=== PATIENT | male | born 1960 | race Caucasian/White ===

== ENCOUNTER 2022-03-20 05:05 | Day surgery (SDC) | payer MEDICAID, SELFPAY ==
[2022-03-20] VITALS (11 sets, daily range): BP systolic 107–176; BP diastolic 54–88; PULSE 47–55; RESP 16–24; TEMP 36.6; O2SAT 92–98; BMI 29.0; BMI 29.9
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
[2022-03-20 05:45] LABS: Basophils Absolute Auto 0.03 K/uL (0.00-0.30); Basophils Percent Auto 0.3 % (0.0-3.0); Eosinophils Absolute Auto 0.06 K/uL (0.00-0.50); Eosinophils Percent Auto 0.6 % (0.0-7.0); Hematocrit 47.8 % (37.0-53.0); Hemoglobin* 16.1 gm/dL (13.5-17.5); Immature Granulocytes Abs Auto 0.01 K/uL (0.00-0.30); Lymphocytes Percent Auto 14.4 % (20-44); Mean Corpuscular HGB Conc 34 gm/dL (32-36); Mean Corpuscular Hemoglobin 31 pg (26-34); Mean Corpuscular Volume 91 fL (80-100); Neutrophils Percent Auto 79.6 % (42.0-72.0); Platelet Count* 275 K/uL (140-440); RDW Coefficient of Variation % 12.5 % (11.5-15.5); Red Blood Count 5.26 m/uL (4.30-5.90); White Blood Count* 10.05 K/uL (4.50-11.00)
[2022-03-20] MEDS: 0.9 % SODIUM CHLORIDE 1000 ml 1,000 ML IV (05:46)
[2022-03-20] MEDS: ONDANSETRON 2 MG/ML inj 4 MG IVP ×2 (05:47→19:25)
[2022-03-20] MEDS: MORPHINE 4 MG/ML INJ IVP (05:47)
[2022-03-20 05:50] LABS: Slide Review Reflex No
[2022-03-20 05:58] LABS: Albumin* 4.6 g/dL (3.3-5.0); Chloride* 102 mmol/L (96-114)
[2022-03-20 05:59] LABS: Potassium* 4.2 mmol/L (3.6-5.1); Sodium* 137 mmol/L (135-149)
[2022-03-20 06:00] LABS: INR 2.34 (0.91-1.10)
[2022-03-20 06:01] LABS: Alkaline Phosphatase* 79 U/L (40-150); Amylase* 81 U/L (18-89); Aspartate Amino Transferase* 29 U/L (12-35); Bilirubin Total* 0.4 mg/dL (0.1-1.5); Blood Urea Nitrogen* 15 mg/dL (7-30); Carbon Dioxide* 28 mmol/L (20-32); Est. Creatinine Clearance* 89.89; Estimated Glomerular Filt Rate 87 ml/min; Lipase* 93 U/L (23-300); Total Protein* 7.9 g/dL (6.0-8.3)
[2022-03-20 06:02] LABS: Alanine Aminotransferase* 33 U/L (4-50); Calcium* 8.9 mg/dL (8.4-10.6); Glucose* 132 mg/dL (60-115)
[2022-03-20 06:08] LABS: C Reactive Protein* < 0.5 mg/dL (0.5-1.0)
[2022-03-20 06:13] LABS: Troponin I* < 0.01 ng/mL (0.01-0.04)
--- NOTE | 2022-03-20 06:13 | CRLHL7_ITS ---
For Patients: As a result of the 21st Century Cures Act, medical imaging exams and procedure reports are released immediately into your electronic medical record. You may view this report before your referring provider. If you have questions, please contact your health care provider. Indication: Abdominal pain Technique: Postcontrast CT chest, abdomen and pelvis. 91 cc Isovue 370 intravenous contrast. Please note that all CT scans at this facility use dose modulation, iterative reconstruction, and/or weight-based dosing when appropriate to reduce radiation dose to as low as reasonably achievable. Comparison: None Findings: In the chest, there are multiple old left-sided rib fracture deformities along with an old comminuted scapular fracture deformity. Mild concavity of the T12 and T8 superior endplates also noted, likely chronic. Normal visualized thyroid. No mediastinal, hilar or axillary adenopathy. No aortic dissection or aneurysm. Scarring within the inferior left lung. No pleural effusion, infiltrate, CHF or pneumothorax. No suspicious nodule. In the abdomen, no intrahepatic mass. Gallbladder distended. 5 millimeter stone associated with the cystic duct. Mild adjacent stranding noted in the surrounding fat. Simple cyst in the upper pole of the right kidney measuring 1.2 cm. No hydronephrosis. Left kidney normal. Normal adrenal glands. Chronic changes to the spleen from remote injury. No splenomegaly. No ascites. Pancreas normal. Mild vascular calcifications. No aneurysm. Umbilical hernia containing fat measuring 2.4 cm. In the pelvis, the bladder is normal. Right inguinal hernia is present containing fat measuring 3.5 cm. Prostate is not enlarged. Sigmoid diverticulosis. No diverticulitis. No bowel obstruction or free air. No free fluid. The appendix is absent. Normal ureters. Degenerative facet arthropathy L4-5 and degenerative disc disease L5-S1 with vacuum disc phenomenon. No pelvic or inguinal adenopathy. Impression: Posttraumatic changes to the left ribcage, left scapula and spleen. Likely chronic changes to the superior endplates of T8 and T12. 5 millimeter calcification associated with this cystic duct with mild adjacent inflammation in the surrounding fat and gallbladder distension, concerning for obstructing stone. Correlate with LFTs. MRCP may be useful. 2.4 cm fat containing umbilical hernia and 3.5 cm fat containing right inguinal hernia. Please note that all CT scans at this facility use dose modulation, iterative reconstruction, and/or weight-based dosing when appropriate to reduce radiation dose to as low as reasonably achievable. Dictated by Evangelist Shin MD @ 03/20/2022 10:57:54 AM (Electronically Signed)
[2022-03-20] MEDS: LORazepam 2 MG/ML inj 0.5 MG IVP (06:51)
--- NOTE | 2022-03-20 07:59 | CRLHL7_ITS ---
For Patients: As a result of the Century Cures Act, medical imaging exams and procedure reports are released immediately into your electronic medical record. You may view this report before your referring provider. If you have questions, please contact your health care provider. INDICATION: RUQ PAIN COMPARISON: CT earlier today TECHNIQUE: Limited real time jansen scale imaging and color Doppler analysis was performed of the right upper quadrant. FINDINGS: Single echogenic focus associated with the gallbladder wall measuring 5 millimeters. Common bile duct measures 6 millimeters. Gallbladder wall measures 3.5 millimeters. No pericholecystic fluid. Gallbladder is mildly distended. Visualized liver is normal. IMPRESSION: Focus of adherent sludge or polyp associated with the gallbladder wall measuring 5 millimeters. The gallbladder wall is mildly prominent and the gallbladder is mildly distended. The calcification on CT is not visualized on this examination although this study is limited due to excessive bowel gas. Correlation with liver function tests recommended. Dictated by Evangelist Shin MD @ 03/20/2022 8:36:35 AM (Electronically Signed)
[2022-03-20 08:31] LABS: Appearance Urine Clear (Clear); Bilirubin Urine Negative (Negative); Blood Urine Trace-intact (Negative); Color Urine Yellow (Yellow); Glucose Urine Negative (Negative); Ketones Urine Negative (Negative); Leukocyte Esterase Urine Negative (Negative); Nitrite Urine Negative (Negative); Protein Urine Negative (Negative); Urobilinogen Urine 0.2 (0.2-1.0)
[2022-03-20] MEDS: HYDROmorphone 0.5 mg/0.5 ml inj IVP ×4 (08:35→17:05)
[2022-03-20 08:42] LABS: RBC Urine 0-2 (0-2); WBC Urine 0-2 (0-5)
[2022-03-20] MEDS: PHYTONADIONE (VIT K1) 5 MG in 0.9 % SODIUM CHLORIDE 50 ml 50 ML 100 MG IVPB (09:06)
[2022-03-20 09:37] LABS: SARS PCR* Negative SARS-CoV-2 (Negative)
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
[2022-03-20] MEDS: LACTATED RINGERS 1000 ML 1,000 ML 125 ML IV ×2 (11:36→19:26)
[2022-03-20] MEDS: ACETAMINOPHEN 325 MG TABLET 650 MG PO ×2 (11:40→19:25)
--- NOTE | 2022-03-20 11:43 | P.GSCN_ITS ---
History of Present Illness Consult details Date Seen: 03/20/22 Consult date: 03/20/22 Narrative: Patient presented to the emergency department with persistent right upper quadrant abdominal pain. He states that he has never had pain like this before. He does report some associated nausea but denies any emesis. He overall describes the feeling as being ?uncomfortable?. He denies feeling bloated. No reported constipation or diarrhea, he last had a bowel movement last night. His pain has improved since being admitted, but he still notes some tenderness on that right side. He does have a history of PE and DVT. He is currently on warfarin with INR greater than 2. His abdominal surgical history is positive for appendectomy. Review of Systems Status of ROS: Reports: 10 or more systems reviewed and unremarkable except as noted in History and below [facility] Medical History Anticoagulation goal of INR 2 to 3 Choroid melanoma of left eye Chronic anticoagulation Deep vein thrombosis, lower right extremity Essential hypertension Obesity Pulmonary embolism Recurrent deep venous thrombosis Sinus bradycardia Surgical History History of partial splenectomy Social History Highest level of school completed/degree received: Bachelor's degree Smoking Status: Former smoker Do you use any of these nicotine containing products: None Second hand tobacco smoke exposure: No How often do you have a drink containing alcohol: never How often do you have six or more drinks on one occasion: Never AUDIT-C Alcohol total score: 0 Non-prescribed substance use: denies use Caffeine: Yes (2 cups a day- coffee) Gender Identity: male service: No Meds Home Medications and Allergies Home Medications Medication Instructions Recorded Confirmed Type lisinopril 20 1 tab PO DAILY 03/20/22 03/20/22 History mg-hydrochlorothiazide 12.5 mg tablet warfarin 5 mg tablet 5 mg PO DAILY 03/20/22 03/20/22 History Allergies Allergy/AdvReac Type Severity Reaction Status Date / Time No Known Drug Allergies Allergy Verified 03/20/22 05:11 Exam Narrative: Exam Narrative: General: Alert and oriented, no acute distress Respiratory: Equal breath rise bilaterally, maintained on room air CV: Regular rhythm rate, well perfused Abdomen: Soft, nontender, nondistended. Patient reporting some mild discomfort with deep palpation of right upper quadrant without guarding or rebound. Extremities: No edema appreciated bilaterally Const: Vital Signs, click to edit/add: Vital Signs - 24 hr 03/20/22 05:12 03/20/22 05:53 03/20/22 06:00 Temperature 98 F Pulse Rate [Pulse Oximeter] 53 L 52 L 52 L Respiratory Rate 20 20 Blood Pressure [Ri ght Arm] Blood Pressure [Ri ght Upper Arm] 176/62 H 176/83 H 161/81 H Pulse Oximetry 92 94 94 Oxygen Delivery Me thod Room Air Room Air Room Air 03/20/22 07:00 03/20/22 07:30 03/20/22 09:00 Temperature Pulse Rate [Pulse Oximeter] 55 L 54 L 52 L Respiratory Rate Blood Pressure [Ri ght Arm] Blood Pressure [Ri ght Upper Arm] 146/74 H 142/72 H 134/72 Pulse Oximetry 93 95 95 Oxygen Delivery Oh thod Room Air Room Air Room Air 03/20/22 09:30 03/20/22 09:58 03/20/22 09:58 Temperature 97.9 F Pulse Rate [Pulse Oximeter] 50 L 48 L Respiratory Rate 16 20 Blood Pressure [Ri ght Arm] 159/88 H Blood Pressure [Ri ght Upper Arm] 117/54 L Pulse Oximetry 94 97 94 Oxygen Delivery Me thod Room Air Room Air Room Air 03/20/22 11:21 Temperature 98 F Pulse Rate [Pulse Oximeter] 51 L Respiratory Rate 24 Blood Pressure [Ri ght Arm] 159/82 H Blood Pressure [Ri ght Upper Arm] Pulse Oximetry 98 Oxygen Delivery Me thod Room Air Results Labs Labs: Abnormal lab results 03/20/22 03/20/22 03/20/22 Range/Units 05:35 05:35 05:35 Neut % (Auto) 79.6 H (42.0-72.0) % Lymph % (Auto) 14.4 L (20-44) % Neut # (Auto) 8.00 H (1.7-7.0) K/uL INR 2.34 H (0.91-1.10) Glucose 132 H (60-115) mg/dL Troponin I < 0.01 L (0.01-0.04) ng/mL C-Reactive Protein < 0.5 L (0.5-1.0) mg/dL Urine Blood (Negative) 03/20/22 Range/Units 08:20 Neut % (Auto) (42.0-72.0) % Lymph % (Auto) (20-44) % Neut # (Auto) (1.7-7.0) K/uL INR (0.91-1.10) Glucose (60-115) mg/dL Troponin I (0.01-0.04) ng/mL C-Reactive Protein (0.5-1.0) mg/dL Urine Blood Trace-intact A (Negative) Diabetes panel 03/20/22 Range/Units 05:35 Sodium 137 (135-149) mmol/L Potassium 4.2 (3.6-5.1) mmol/L Chloride 102 (96-114) mmol/L Carbon Dioxide 28 (20-32) mmol/L BUN 15 (7-30) mg/dL Creatinine 1.0 (0.5-1.5) mg/dL Glucose 132 H (60-115) mg/dL Calcium 8.9 (8.4-10.6) mg/dL AST 29 (12-35) U/L ALT 33 (4-50) U/L Alkaline Phosphatase 79 (40-150) U/L Total Protein 7.9 (6.0-8.3) g/dL Albumin 4.6 (3.3-5.0) g/dL Calcium panel 03/20/22 Range/Units 05:35 Calcium 8.9 (8.4-10.6) mg/dL Albumin 4.6 (3.3-5.0) g/dL Pituitary panel 03/20/22 Range/Units 05:35 Sodium 137 (135-149) mmol/L Potassium 4.2 (3.6-5.1) mmol/L Chloride 102 (96-114) mmol/L Carbon Dioxide 28 (20-32) mmol/L BUN 15 (7-30) mg/dL Creatinine 1.0 (0.5-1.5) mg/dL Glucose 132 H (60-115) mg/dL Calcium 8.9 (8.4-10.6) mg/dL Adrenal panel 03/20/22 Range/Units 05:35 Sodium 137 (135-149) mmol/L Potassium 4.2 (3.6-5.1) mmol/L Chloride 102 (96-114) mmol/L Carbon Dioxide 28 (20-32) mmol/L BUN 15 (7-30) mg/dL Creatinine 1.0 (0.5-1.5) mg/dL Glucose 132 H (60-115) mg/dL Calcium 8.9 (8.4-10.6) mg/dL Total Bilirubin 0.4 (0.1-1.5) mg/dL AST 29 (12-35) U/L ALT 33 (4-50) U/L Alkaline Phosphatase 79 (40-150) U/L Total Protein 7.9 (6.0-8.3) g/dL Albumin 4.6 (3.3-5.0) g/dL All other labs normal. Imaging Abdomen CT scan report/results: image reviewed Abdominal ultrasound report/results: report reviewed and image reviewed Assessment and Plan Assessment and plan (1) Acute cholecystitis: Status: Acute Plan Patient is a 61-year-old male with workup consistent for acute cholecystitis. Vital signs stable on admission. Labs are significant for elevated INR 2.3, which is appropriate given his warfarin use. LFTs within normal limits. CT scan demonstrates a stone present in the cystic duct. Abdominal ultrasound was obtained and demonstrated a focus of adherent sludge or polyp on the gallbladder wall, mild gallbladder wall thickening and distension. They do note that they are unable to visualize the calcifications seen on CT scan secondary to bowel gas. Given the above findings, as well as the patient's persistent pain I had a detailed conversation with the patient regarding the diagnosis of acute cholecystitis. We discussed the treatment options including observation with diet modification and laparoscopic cholecystectomy. We discussed the risks of surgery (including but not limited to) the risks of bleeding, infection, injury to other structures in the abdomen including bile duct injury, bile leak and conversion to an open operation. We discussed the possibility that the patient's pain not improve with surgery. We discussed the possibility of permanent post-operative diarrhea that may require medical management. Additionally, the conceivably of complications requiring additional surgery or further hospitalization were also discussed including the risks of MA, respiratory failure, stroke and blood clots. The patient voiced an understanding of our conversation and had the opportunity to ask questions. At this time I recommend continuing with IV antibiotics and reverse the patient's INR with planned surgery tomorrow morning. -clear liquid diet -NPO at midnight -continue IV antibiotics -repeat CBC and LFTs in the morning
[2022-03-20] MEDS: SODIUM CHLORIDE 0.9 % (FLUSH) 10 ML SYRINGE 5 ML IVF ×3 (11:44→21:08)
--- NOTE | 2022-03-20 14:20 | PC.NURSE ---
End of Shift: Patient pleasant and cooperative. Patient arrived to the floor at about 0945. Patient is independent in room. Patient is vitally stable, lungs clear, BS WNL, IV running LR at 125 ml in LAC. Patient has rated pain at most 5/10, tylenol given once and 0.5 mg of Dilaudid given x2. Patient has urinated x2, no passing gas, and only taking sips of water. Patient showered.
--- NOTE | 2022-03-20 17:51 | PC.NURSE ---
shift note: vss stable. pt up indept. pt passing flatus. Pt BS hypoactive with distention to abd. LS clr. Pt rating abd pain 2/10.
[2022-03-20] MEDS: lisinopriL 20 MG TABLET PO (21:07)
[2022-03-21] VITALS (26 sets, daily range): BP systolic 127–187; BP diastolic 66–100; PULSE 52–98; RESP 14–21; TEMP 36.4–37.6; O2SAT 91–100
[2022-03-21] MEDS: LACTATED RINGERS 1000 ML 1,000 ML 125 ML IV ×2 (03:29→15:00)
--- NOTE | 2022-03-21 06:49 | PC.NURSE ---
Alert and oriented x4. Vitals stable. Denies pain overnight. Wondering if surgery can be postponed since pain is no longer there. Explained that that is something he can discuss with the MD during the day. Hypoactive bowel sounds. Ambulating fine independently. No further concerns overnight. Will continue to monitor and assess
[2022-03-21 07:23] LABS: Basophils Absolute Auto 0.04 K/uL (0.00-0.30); Basophils Percent Auto 0.4 % (0.0-3.0); Eosinophils Absolute Auto 0.09 K/uL (0.00-0.50); Eosinophils Percent Auto 0.8 % (0.0-7.0); Hematocrit 46.6 % (37.0-53.0); Hemoglobin* 15.8 gm/dL (13.5-17.5); Immature Granulocytes Abs Auto 0.04 K/uL (0.00-0.30); Lymphocytes Percent Auto 19.2 % (20-44); Mean Corpuscular HGB Conc 34 gm/dL (32-36); Mean Corpuscular Hemoglobin 31 pg (26-34); Mean Corpuscular Volume 91 fL (80-100); Monocytes Percent Auto 7.5 % (0.0-11.0); Neutrophils Percent Auto 71.7 % (42.0-72.0); Platelet Count* 208 K/uL (140-440); RDW Coefficient of Variation % 12.4 % (11.5-15.5); Red Blood Count 5.12 m/uL (4.30-5.90); White Blood Count* 10.88 K/uL (4.50-11.00)
[2022-03-21 07:24] LABS: Slide Review Reflex No
[2022-03-21 07:44] LABS: Prothrombin Time 16.6 Seconds
[2022-03-21 08:09] LABS: Albumin* 3.6 g/dL (3.3-5.0); Chloride* 106 mmol/L (96-114)
[2022-03-21 08:10] LABS: Potassium* 4.1 mmol/L (3.6-5.1); Sodium* 137 mmol/L (135-149)
[2022-03-21 08:12] LABS: Creatinine* 0.9 mg/dL (0.5-1.5); Est. Creatinine Clearance* 99.88; Estimated Glomerular Filt Rate 98 ml/min
[2022-03-21 08:13] LABS: Alanine Aminotransferase* 24 U/L (4-50); Alkaline Phosphatase* 67 U/L (40-150); Aspartate Amino Transferase* 22 U/L (12-35); Bilirubin Direct* 0.1 mg/dL (0.0-0.5); Bilirubin Total* 1.3 mg/dL (0.1-1.5); Blood Urea Nitrogen* 10 mg/dL (7-30); Calcium* 8.4 mg/dL (8.4-10.6); Carbon Dioxide* 29 mmol/L (20-32); Glucose* 90 mg/dL (60-115); Total Protein* 6.4 g/dL (6.0-8.3)
[2022-03-21 08:15] LABS: C Reactive Protein* 4.8 mg/dL (0.5-1.0)
[2022-03-21] MEDS: PIPERACILLIN/TAZOBACTAM 3.375 GM in 0.9 % SODIUM CHLORIDE Mini-bag 100 ML IVPB (09:46)
[2022-03-21] MEDS: LACTATED RINGERS 1000 ML 1,000 ML 100 ML IV (11:15)
--- NOTE | 2022-03-21 11:31 | PM.IMPN1 ---
Progress Note: A&P Assessment and plan (1) Biliary colic: Status: Acute (2) Cholelithiasis: Status: Acute (3) Calculus of cystic duct: Status: Acute (4) Acute cholecystitis: Status: Acute (5) Umbilical hernia: Problem details: CT abd/pelvis (03/20/2022): fat containing Status: Acute (6) Right inguinal hernia: Problem details: CT abd/pelvis (03/20/2022): fat containing Status: Acute (7) Chronic anticoagulation: Status: Acute (8) Anticoagulation goal of INR 2 to 3: Status: Acute (9) Recurrent deep venous thrombosis: Status: Acute (10) Essential hypertension: Status: Acute (11) Sinus bradycardia: Status: Acute Plan 1. Reviewed impression with patient. 2. Answered the patient's questions to his satisfaction. 3. Recommended that he proceed with surgery as planned. 4. Patient's level of anticoagulation is adequately managed preoperatively with an INR of 1.3. 5. Recommend restarting warfarin 12-24 hours after surgery. 6. If patient is able to be adequately ambulatory postoperatively there is no need for bridging with enoxaparin. If patient is not able to be ambulatory postoperatively he will warrant bridging therapy with enoxaparin for about 1 week. The dosing for the bridging therapy would be 1 milligram/kilogram subcutaneously twice daily. 7. Recommend holding antihypertensive medicine until he is able to adequately tolerate oral intake. May resume antihypertensive medicine as early as tomorrow if he is tolerating oral intakes. 8. Patient agreeable with above stated plans and recommendations. 9. Discuss with patient's general surgeon, Dr. Soto. Time Spent With Patient Total time spent: 20 minutes Subjective Time Seen by Provider: 08:00 Date Seen: 03/21/22 Interval history: Hospital day 2. 61-year-old man who presented with sudden onset right upper quadrant abdominal pain and nausea without vomiting. Admitted with severe symptomatic biliary colic and found to have a stone in the cystic duct. Was kept NPO. On IV fluids. Treated with analgesics and antiemetics as needed. Feels much improved today. He states the abdominal pain has seemingly resolved. Did require analgesics and antiemetics however. He wonders if perhaps the stone that was in the cystic duct has since been past or dislodged. Nausea has resolved. Denies chest heaviness, pressure, tightness, or pain. Denies angina or anginal equivalent. Denies syncope or near-syncope. Denies shortness of breath, cough. Denies palpitations. Denies dyspepsia, dysphagia, odynophagia. Exam Narrative: Exam Narrative: Alert, articulate, cooperative. Oriented to self, place, time, situation. Mood and affect are congruent. No acute distress. No CVA tenderness. Lungs clear to auscultation. Heart tones with regular rhythm. Abdomen with active bowel sounds, soft. Extremities without edema. Skin is warm, dry, intact. No focal motor neurologic deficits. Const: Vital Signs, click to edit/add: Vital Signs - 24 hr 03/20/22 15:00 03/20/22 23:00 03/20/22 23:00 Temperature 98 F 98 F Pulse Rate [Pulse Oximeter] 47 L 53 L 53 L Respiratory Rate 20 20 20 Blood Pressure [Ri ght Arm] 145/72 H 107/66 Pulse Oximetry 96 96 Oxygen Delivery Me thod Room Air Room Air 03/21/22 07:00 Temperature 98.5 F Pulse Rate [Pulse Oximeter] 52 L Respiratory Rate 18 Blood Pressure [Ri ght Arm] 149/66 H Pulse Oximetry 93 Oxygen Delivery Me thod Room Air Labs Labs: Laboratory Results - last 24 hr 03/21/22 03/21/22 03/21/22 06:58 06:58 07:48 WBC 10.88 RBC 5.12 Hgb 15.8 Hct 46.6 MCV 91 MCH 31 MCHC 34 RDW Coeff of [place] 12.4 Plt Count 208 Neut % (Auto) 71.7 Lymph % (Auto) 19.2 L [place] % (Auto) 7.5 Eos % (Auto) 0.8 Baso % (Auto) 0.4 Neut # (Auto) 7.80 H Lymph # (Auto) 2.10 [place] # (Auto) 0.80 Eos # (Auto) 0.09 Baso # (Auto) 0.04 Abs Immat Gran (auto) 0.04 INR 1.30 H Sodium 137 Potassium 4.1 Chloride 106 Carbon Dioxide 29 BUN 10 Creatinine 0.9 Estimated Creat Clear 99.88 Estimated GFR 98 Glucose 90 Calcium 8.4 Total Bilirubin 1.3 Direct Bilirubin 0.1 AST 22 ALT 24 Alkaline Phosphatase 67 C-Reactive Protein 4.8 H Total Protein 6.4 Albumin 3.6
--- NOTE | 2022-03-21 12:52 | P.GSOP_ITS ---
Operative Note Date of procedure: 03/21/22 Type of Procedure: Laparoscopic cholecystectomy Procedure Description: After discussing the risks and benefits of the procedure, the patient signed informed consent.? The operative site was marked and the patient was brought to the operating room and placed on the operating table in supine position.? Care was taken to pad the patient's pressure points.?? The patient was then intubated by anesthesia.?? The operative site was then prepped and draped in the usual sterile fashion.? A time-out was then performed. Entrance to the abdomen was gained via a 5 mm Visiport in the left upper quadrant. The abdomen was insufflated and briefly surveyed for signs of injury. There was none. 11 mm umbilical port was placed as well as 2 working ports along the right costal margin. Patient was then placed in reverse Trendelenburg position with the right side up. The gallbladder fundus was grasped and retracted cephalad. The gallbladder was distended and hemorrhagic. The laparoscopic needle was used to decompress the gallbladder, allowing the infundibulum to be grasped. A combination of hook cautery and blunt dissection was used to carefully dissect out the cystic duct and artery until they could clearly be seen entering the gallbladder without any intervening structures. The tissue was very edematous and [place], making this portion of the dissection tedious. The gallbladder was able to be dissected off the cystic plate to achieve the critical view. Once this was achieved the cystic duct and artery were each clipped with 2 clips proximally and 1 clip distally and transected with the scissors. The gallbladder was then taken off of the liver bed. A small vein was visualized by the cystic duct, this was bleeding and a 5 mm clip applied with adequate hemostasis. Due to the inflammatory nature of the tissue the gallbladder fossa had some oozing of the inflammatory tissue. A Surgicel was applied and hemostasis assured. The gallbladder was completely removed from the liver bed and removed from the abdomen using an Endo-Catch bag. A small amount of bile which had spilled was suctioned from the abdomen. the ports were then removed under direct vision. The umbilical port fascia was closed with 0 Vicryl. The skin was closed with absorbable subcuticular suture. Instrument sponge and needle counts were correct at the end of the case. The patient was then woken and transferred to the PACU in stable condition. Findings: Hemorrhagic and distended gallbladder, consistent with acute cholecystitis. Anesthesia: GETA Surgeon: Urmila Soto MD Estimated blood loss (mL): 15 Condition: stable Disposition: PACU
--- NOTE | 2022-03-21 13:06 | W.ANESCHARGE ---
Anesthesia Charges Start Date/Time Anesthesia Start Date: 03/21/22 Anesthesia Start Time: 11:13 Stop Date/Time Anesthesia Stop Date: 03/21/22 Anesthesia Stop Time: 13:02 Summary Emergency: No
[2022-03-21] MEDS: fentaNYL 100 MCG/2 ML inj 50 MCG IVP (13:21)
--- NOTE | 2022-03-21 15:46 | PC.NURSE ---
Pt NPO for surgical procedure this am. Eval by Dr. Szymanski and Dr. Soto. Jun from anesthesia in room to discuss plan with pt who is mildly apprehensive about having the surgery. My pain is totally gone. Information provided and reassurance given. Pre-op check list, SBAR and permits completed per protocol. Pt taken to OR in his hospital bed @ 1110 am. Pt returned to room 247 s/p laparoscopic cholecystectomy with Dr. Soto in his hospital bed @ 1400. Please see initial assessment from PACU and post op routine VS. Pt has not voided since rtn to floor. Pt remains anxious, drifts in and out of sleep. IV maintenance fluids @ 125cc/hr. Pt denies abdominal pain, I just feel weird. Tolerating ice chips, denies nausea, not hungry yet. Reassurance provided. Report to Ailyn EDWARD for evening shift.
[2022-03-21] MEDS: ONDANSETRON 2 MG/ML inj 4 MG IVP (16:55)
[2022-03-21] MEDS: OXYCODONE 5 MG TABLET PO (19:13)
[2022-03-21] MEDS: lisinopriL 20 MG TABLET PO (20:32)
--- NOTE | 2022-03-21 22:11 | PC.NURSE ---
Shift [id number]- Patient rates pain up to 4-5/10 with movement, but otherwise states he is not really having much pain, particularly at rest. He requests pain medication tonight, which is given with relief. He is eating and drinking without issue. He is now voiding without issue. He requires 1L O2 to maintain saturations >90%, with saturations at low-mid 90s%. IS encouraged. While sitting in the chair, becomes hot and nauseous- though was sitting in sun. These symptoms subside after getting back to bed, shades pulled and being given zofran. Lap sites intact.
[2022-03-22 00:26] VITALS: PULSE 56; RESP 20; O2SAT 91
[2022-03-22] MEDS: OXYCODONE 5 MG TABLET PO ×3 (01:58→13:26)
[2022-03-22 03:18] VITALS: BP 122/62; PULSE 62; RESP 20; TEMP 36.8; O2SAT 92
[2022-03-22] MEDS: ACETAMINOPHEN 325 MG TABLET 650 MG PO (05:03)
--- NOTE | 2022-03-22 05:10 | PC.NURSE ---
Shift Note 23-07: Pt pleasant and cooperative with POC. VSS, afebrile, pain rated 5/10, Pt satisfied with pain medication regimen. pt requiring 1L NC supplemental O2 to keep sats >90%. Pt ed provided on the importance of deep breathing, IS use and ambulation. See eMAR for medication administration.
[2022-03-22 07:00] VITALS: BP 131/58; PULSE 55; RESP 18; TEMP 36.8; O2SAT 93
[2022-03-22 08:30] VITALS: PULSE 55; RESP 18
[2022-03-22 11:00] VITALS: BP 135/70; PULSE 58; RESP 18; TEMP 36.8; O2SAT 96
--- NOTE | 2022-03-22 14:37 | PC.NURSE ---
Discharge Summary: Patient pleasant and cooperative. Afebrile. O2 sats 93-96% on room air. Lap sites to abdomen C/D/I. C/o pain up to 410 and PRN Oxycodone given x2. Tolerating regular diet with no nausea. Up independently in room. C/o calf tightness in left leg, updated MD. Patient discharged home at 1355 with all personal belongings. Discharge instructions including diagnosis, medications and follow up plan discussed with patient and voiced understanding.
--- NOTE | 2022-04-02 13:00 | PM.DS1 ---
DS: Providers Provider Date Seen: 03/22/22 Primary care physician: Osiel Calix MD Attending Physician on discharge: Adi Szymanski MD DS: Summary Hospital Course Hospital Course: Patient was admitted to the hospital with evidence of acute cholecystitis. He does take warfarin chronically and had an appropriate INR on admission of 2.3. He was admitted to the hospital started on IV antibiotics and reversed with vitamin K. On hospital day 2 his INR was 1.3 and he was taken to the operating room for laparoscopic cholecystectomy. Patient tolerated procedure well without immediate complication. On the day of discharge he was tolerating a regular diet, ambulating independently, voiding without difficulty and pain was well controlled on oral medications. Time Spent with Patient Time attestation: Total time spent providing and/or coordinating discharge services: Exam Narrative: Exam Narrative: General: Alert and oriented, no acute distress Abdomen: Appropriately tender over incision sites, Dermabond in place clean/dry/intact. With no concern for infection. No distention abdomen is soft. Discharge Plan Discharge Disposition: Home, Self-Care Discharging Surgeon: Urmila Soto Follow-Up Appointment: 2 week phone follow up Prescriptions: New oxycodone 5 mg tablet 5 mg PO Q6H PRN (Reason: pain) Qty: 10 0RF senna 8.6 mg capsule 8.6 mg PO DAILY PRN (Reason: constipation) Qty: 90 0RF Continued lisinopril-hydrochlorothiazide 20-12.5 mg tablet 1 tab PO DAILY Label Comments: TAKE 1 TABLET BY MOUTH EVERY DAY Held warfarin 5 mg tablet 5 mg PO DAILY Hold Instructions: Resume on 03/22/22. Restart your anticoagulation tomorrow. Label Comments: TAKE BY MOUTH 5 MG (5 MG X 1) EVERY DAY OR DIRECTED Activity Level: Activity as Tolerated Activity Detail: Activity as tolerated. Avoid strenuous activity. No lifting greater than 20 lb for 2 weeks. Discharge Diet: Low Fat/Low Cholesterol Patient Instructions: Oxycodone, Rapid Release (By mouth), Senna (By mouth), Laparoscopic Cholecystectomy (DC), Post-Operative Instructions: Laparoscopic Cholecystectomy Additional Instructions: Rest and push fluids. No work today. Seek medical attention for worsening symptoms. Follow up with primary MD as needed. Okay to shower starting tomorrow. Do not soak in a bath or swim for 2 weeks. Forms: [employer] Info Instructions Follow-up: Osiel Calix MD [Primary Care Provider] - (Beth Dimas will call patient to set up phone call follow up with Dr. Soto) Discharge Orders: Discharge Order (Routine); Ordered 03/22/22 Ordered By: Urmila Soto
== END 2022-03-22 13:55 | disposition home or self-care (01) ==
LOC: ED 08:25 → SS 09:04 → MEDSURG 12:05
PROVIDERS: Surgery; Emergency Provider Family Medicine; PCP Family Medicine; Visit Provider Internal Medicine
PROC: 0FT44ZZ Resection of Gallbladder, Percutaneous Endoscopic Approach (ICD-10-PCS; CPT 47562; principal; 2022-03-21 10:30)
DX: K80.62 Calculus of gallbladder and bile duct with acute cholecystitis without obstruction (principal); Z86.718 Personal history of other venous thrombosis and embolism; Z79.01 Long term (current) use of anticoagulants; R00.1 Bradycardia, unspecified; Z85.820 Personal history of malignant melanoma of skin; Z85.840 Personal history of malignant neoplasm of eye; I10 Essential (primary) hypertension; E66.9 Obesity, unspecified
CPT/HCPCS: 47562; 00790; 36415; 71260; 74177; 76705; 80048; 80053; 80076; 81003; 81015; 82150; 83690; 84484; 85025; 85610; 86140; 87635; 88304; 93005; 99284; 99285; A9270; J0330; J1100; J1170; J2060; J2270; J2405; J2543; J2704; J2710; J3010; J3430; J7030; J7120; Q9967